=== PATIENT | female | born 1995 | race Caucasian/White ===

== ENCOUNTER 2016-03-06 16:58 | Emergency (ER) | payer OTHER ==
[2016-03-06] MEDS ORDERED: IBUPROFEN 600 MG TAB As Ordered ONE (17:34)
[2016-03-06] MEDS ORDERED: ACETAMINOPHEN 325 MG TAB As Ordered ONE (17:35)
[2016-03-06 17:44] LABS: CONTROL LINE UCG INT CTR LINE PRESENT
[2016-03-06 18:25] LABS: BASO % 0.1 % (0.0-1.0); EOS # 0.1 K/mm3 (0.0-0.50); EOS % 0.9 % (0.0-3.0); LARGE UNSTAINED CELL # 0.1 K/mm3 (0.0-0.4); LARGE UNSTAINED CELL % 0.9 % (0.0-4.0); LYMPH # 0.6 K/mm3 (1.5-6.5); LYMPH % 6.8 % (24.0-44.0); MEAN CORPUSCULAR HEMOGLOBIN 32.7 pg (27.0-33.0); MEAN CORPUSCULAR HGB CONC 35.1 g/dl (32.0-36.5); MEAN CORPUSCULAR VOLUME 93.3 fl (80.0-96.0); MONO # 0.3 K/mm3 (0.0-0.8); MONO % 3.8 % (0.0-5.0); NEUTROPHILS # 7.3 K/mm3 (1.8-7.7); NEUTROPHILS % 87.6 % (36.0-66.0); PLATELET COUNT, AUTOMATED 191 k/mm3 (150-450); RED CELL DISTRIBUTION WIDTH 11.4 % (11.5-14.5); WHITE BLOOD COUNT 8.3 K/mm3 (4.0-10.0)
[2016-03-06 18:40] LABS: ALBUMIN 4.3 GM/DL (3.2-5.2); ALBUMIN/GLOBULIN RATIO 1.34 (1.00-1.93); ALKALINE PHOSPHATASE 71 U/L (45-117); ALT/SGPT 25 U/L (12-78); ANION GAP 9 MEQ/L (8-16); AST/SGOT 16 U/L (15-37); BILIRUBIN,TOTAL 1.9 MG/DL (0.2-1.0); BLOOD UREA NITROGEN 12 MG/DL (7-18); CALCIUM LEVEL 8.5 MG/DL (8.5-10.1); CARBON DIOXIDE LEVEL 25 MEQ/L (21-32); CHLORIDE LEVEL 103 MEQ/L (98-107); CREATININE FOR GFR 0.82 MG/DL (0.55-1.02); GLUCOSE, FASTING 104 MG/DL (70-105); POTASSIUM SERUM 3.4 MEQ/L (3.5-5.1); SODIUM LEVEL 137 MEQ/L (136-145); TOTAL PROTEIN 7.5 GM/DL (6.4-8.2)
[2016-03-06] MEDS ORDERED: PHENAZOPYRIDINE 100 MG TAB As Ordered ONE (18:48)
[2016-03-06] MEDS ORDERED: CIPROFLOXACIN 500 MG TAB As Ordered ONE (18:48)
--- NOTE | 2016-03-06 19:01 | EDDOCDS ---
Physician Documentation [facility] Name: Lesa Orosco Age: 20 yrs Sex: Female : 1995 Arrival Date: 03/06/2016 Time: 16:58 Bed I6 / 28 Private MD: Other - Complete Info On Cds Disposition: 03/06/16 18:52 Discharged to Home/Self Care. Impression: Urinary tract infection, site not specified. - Condition is Stable. - Discharge Instructions: Urinary Tract Infection. - Prescriptions for Cipro 500 mg Oral Tablet - take 1 tablet by ORAL route every 12 hours; 14 tablet. Pyridium 200 mg Oral Tablet - take 1 tablet by ORAL route every 8 hours for 3 days; 9 tablet. - Medication Reconciliation, Local Pharmacy Hours form. - Follow up: JANEEN Fallon; When: 1 - 2 days; Reason: Recheck today's complaints, Continuance of care. Follow up: Emergency Department; When: As needed; Reason: Fever > 102F, Recheck today's complaints, Worsening of conditions, Continuance of care. - Problem is new. - Symptoms have improved. - Notes: USE TYLENOL AND MOTRIN TO TREAT FEVER AND PAIN, USE MEDICATIONS INSTRUTCED, FOLLOW UP WITH YOUR DOCTOR, RETURN TO THE ER IF THE SYMPTOMS WORSEN OR BECOME CONCERNING Historical: - Allergies: no known allergies; - Home Meds: 1. escitalopram oxalate 20 mg oral tab 1 tab once daily (Last dose: 03/05/2016) 2. pantoprazole 40 mg oral TbEC 1 tab once daily (Last dose: 03/05/2016) 3. Linzess 290 mcg oral cap 1 cap once daily (Last dose: 03/05/2016) - PMHx: GERD; Anxiety; Depression; Retinal Detachment - Left; - PSHx: Hernia repair; Tonsillectomy; Adenoidectomy; - Social history: Smoking status: Patient states was never smoker of tobacco. No barriers to communication noted, The patient speaks fluent [place]. - : The pt / caregiver states he / she is not on anticoagulants. Home medication list is obtained from the patient. - Exposure Risk Screening:: None identified. 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 3 in. (160.02 cm) (R); Pain 8/10; 18:50 BP 119 / 57; Pulse 94; Resp 16; Temp 99.4(O); Pulse Ox 97% on R/A; Pain 7/10; sew 17:00 Body Mass Index 18.78 (48.08 kg, 160.02 cm) gr2 MDM: 17:12 UA Ordered. EDMS 17:12 UCG- In Lab Ordered. EDMS 17:12 Urine Culture Ordered. EDMS 17:28 Acetaminophen Tablet 975 mg PO once ordered. ef1 17:28 Ibuprofen 600 mg PO once ordered. ef1 17:30 CBC with Diff Ordered. EDMS 17:30 Complete Comphrensive Metabolic Ordered. EDMS 18:39 UA Reviewed. ck7 18:39 CBC with Diff Reviewed. ck7 18:39 UCG- In Lab Reviewed. ck7 18:43 Ciprofloxacin 500 mg PO once ordered. ck7 18:43 Phenazopyridine 200 mg PO once ordered. ck7 18:43 Recheck Vital Signs, perform reassessment and enter into [employer] ordered. ck7 18:43 Complete Comphrensive Metabolic Reviewed. ck7 18:59 Financial registration complete. zo Administered Medications: 17:37 Drug: Acetaminophen 975 mg [acetaminophen 325 mg tablet (3 tabs)] Route: PO; dls 17:37 Drug: Ibuprofen 600 mg [ibuprofen 600 mg tablet (1 tabs)] Route: PO; dls 18:50 Drug: Ciprofloxacin 500 mg [ciprofloxacin 500 mg tablet (1 tabs)] Route: PO; dls 18:50 Drug: Phenazopyridine 200 mg [phenazopyridine 100 mg tablet (2 tabs)] Route: PO; dls Signatures: Dispatcher [employer] EDMS Vin Luna,RN RN Priya Silverio Erica PAJerichoC PAJerichoC ef1 Jayde Sy, RN RN jc4 Yoav Hernandez RPA-C RPA-Arnold7 Queta Olivier RN dls MTDD
--- NOTE | 2016-03-06 19:01 | EDDOCDS ---
Nurse's Notes [facility] Name: Lesa Orosco Age: 20 yrs Sex: Female : 1995 Arrival Date: 03/06/2016 Time: 16:58 Bed I6 / 28 Private MD: Other - Complete Info On Cds Diagnosis: Urinary tract infection, site not specified Presentation: 03/06 17:05 Presenting complaint: Patient states: "I have a history of kidney infections. I have jc4 pain when urinating, constant pain on the right side, headache, nausea, diarrhea". Symptoms for the past 2 days. Adult Sepsis Screening: The patient does not have new or worsening altered mentation. Patient's respiratory rate is less than 22. Systolic blood pressure is greater than 100. Patient has a qSOFA score of 0- Negative Sepsis Screen. Suicide/Homicide risk assessment- the patient denies having any suicidal and/or homicidal ideations and does not present with any other emotional, behavioral or mental health complaints. Status: The patient is a dependent. Transition of care: patient was not received from another setting of care. 17:05 Acuity: SHE Level 3 jc4 17:05 Method Of Arrival: Walkin/Carried/Asstd jc4 Triage Assessment: 17:09 General: Appears uncomfortable. Pain: Pain currently is 8 out of 10 on a pain scale. Pt jc4 Declines HIV testing. 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 escitalopram oxalate 20 mg oral tab 1 tab once daily (Last dose: 03/05/2016) 2. pantoprazole 40 mg oral TbEC 1 tab once daily (Last dose: 03/05/2016) 3. Linzess 290 mcg oral cap 1 cap once daily (Last dose: 03/05/2016) - PMHx: GERD; Anxiety; Depression; Retinal Detachment - Left; - PSHx: Hernia repair; Tonsillectomy; Adenoidectomy; - Social history: Smoking status: Patient states was never smoker of tobacco. No barriers to communication noted, The patient speaks fluent Nepali. - : The pt / caregiver states he / she is not on anticoagulants. Home medication list is obtained from the patient. - Exposure Risk Screening:: None identified. Screenin:00 Screening information is obtained from the patient. Fall risk: No risks identified. jmk Assistance ADL's: requires no assistance with activities of daily living. Abuse/DV Screen: The patient / caregiver reports he/she is:. Nutritional screening: No deficits noted. Advance Directives: Currently, there is no health care proxy. There is no active DNR order. There is no living will. There is no Power of Rn Er. Advance directive information has not previously been placed in an [facility] medical record. Further advance directive information is declined. home support is adequate. Assessment: 17:22 General: Appears in no apparent distress, sin warm and dry color satisfactory. moist jmk pink oral mucosa.. Vital Signs: 17:00 BP 106 / 59; Pulse 103; Resp 18 S; Temp 101.0(O); Pulse Ox 99% on R/A; Weight 48.08 kg gr2 (R); Height 5 ft. 3 in. (160.02 cm) (R); Pain 8/10; 18:50 BP 119 / 57; Pulse 94; Resp 16; Temp 99.4(O); Pulse Ox 97% on R/A; Pain 7/10; sew 17:00 Body Mass Index 18.78 (48.08 kg, 160.02 cm) gr2 Vitals: 17:00 Log In Time: March 06, 2016 at 17:00. gr2 ED Course: 17:00 Patient visited by Abdelrahman Mcdonald. gr2 17:00 Other - Complete Info On Cds is Private Physician. gr2 17:00 Patient moved to Waiting gr2 17:01 Patient visited by Abdelrahman Mcdonald. gr2 17:01 Patient moved to Pre RCE gr2 17:07 Triage Initiated jc4 17:14 Patient moved to I6 / 28 jc4 17:19 UCG- In Lab Sent. ar3 17:19 Urine Culture Sent. ar3 17:19 UA Sent. ar3 18:25 Patient visited by Queta Olivier RN. dls 18:33 Yoav Hernandez RPA-C is PHCP. ck7 18:33 Haris George MD is Attending Physician. ck7 18:33 Patient visited by Yoav Hernandez RPA-C. ck7 18:52 [facility] [place]erral Physician. ck7 Administered Medications: 17:37 Drug: Acetaminophen 975 mg [acetaminophen 325 mg tablet (3 tabs)] Route: PO; dls 17:37 Drug: Ibuprofen 600 mg [ibuprofen 600 mg tablet (1 tabs)] Route: PO; dls 18:50 Drug: Ciprofloxacin 500 mg [ciprofloxacin 500 mg tablet (1 tabs)] Route: PO; dls 18:50 Drug: Phenazopyridine 200 mg [phenazopyridine 100 mg tablet (2 tabs)] Route: PO; dls Order Results: Lab Order: UA; SPEC'M 03/06/16 17:17 Test: APPEARANCE, URINE; Value: HAZY; Range: CLEAR; Status: F Test: COLOR, URINE; Value: YELLOW; Range: YELLOW; Status: F Test: PH,URINE; Value: 5.0; Range: 5.0-9.0; Units: UNITS; Status: F Test: SPECIFIC GRAVITY URINE AUTO; Value: 1.023; Range: 1.002-1.035; Status: F Test: PROTEIN, URINE AUTO; Value: 1+; Range: NEGATIVE; Abnormal: Above high normal; Units: mg/dL; Status: F Test: GLUCOSE, URINE (UA) AUTO; Value: NEGATIVE; Range: NEGATIVE; Units: mg/dL; Status: F Test: KETONE, URINE AUTO; Value: NEGATIVE; Range: NEGATIVE; Units: mg/dL; Status: F Test: UROBILINOGEN, URINE AUTO; Value: 0.2; Range: 0.0-2.0; Units: mg/dL; Status: F Test: BILIRUBIN, URINE AUTO; Value: NEGATIVE; Range: NEGATIVE; Status: F Test: NITRITE, URINE AUTO; Value: NEGATIVE; Range: NEGATIVE; Status: F Test: LEUKOCYTE ESTERASE, URINE AUTO; Value: 1+; Range: NEGATIVE; Abnormal: Above high normal; Status: F Test: BLOOD, URINE BLOOD; Value: 2+; Range: NEGATIVE; Abnormal: Above high normal; Status: F Test: SPERM, URINE AUTO; Range: NONE; Status: I Test: WBC, URINE AUTO; Value: 16; Range: 0-3; Abnormal: Above high normal; Units: /HPF; Status: F Test: RBC, URINE AUTO; Value: 22; Range: 0-3; Abnormal: Above high normal; Units: /HPF; Status: F Test: BACTERIA, URINE AUTO; Value: 1+; Range: NEGATIVE; Abnormal: Above high normal; Status: F Test: SQUAMOUS EPITHELIAL CELL UR AU; Value: 4; Range: 0-6; Units: /HPF; Status: F Test: MUCUS, URINE; Value: SMALL; Range: NEGATIVE; Status: F Test: HYALINE CAST, URINE AUTO; Value: 0; Range: 0-1; Units: /LPF; Status: F Lab Order: UCG- In Lab; SPEC'M 03/06/16 17:17 Test: URINE PREG TEST; Value: NEGATIVE; Range: NEGATIVE; Status: F Lab Order: CBC with Diff; SPEC'M 03/06/16 18:04 Test: WHITE BLOOD COUNT; Value: 8.3; Range: 4.0-10.0; Units: K/mm3; Status: F Test: RED BLOOD COUNT; Value: 4.43; Range: 4.00-5.40; Units: M/mm3; Status: F Test: HEMOGLOBIN; Value: 14.5; Range: 12.0-16.0; Units: g/dl; Status: F Test: HEMATOCRIT; Value: 41.3; Range: 36.0-47.0; Units: %; Status: F Test: MEAN CORPUSCULAR VOLUME; Value: 93.3; Range: 80.0-96.0; Units: fl; Status: F Test: MEAN CORPUSCULAR HEMOGLOBIN; Value: 32.7; Range: 27.0-33.0; Units: pg; Status: F Test: MEAN CORPUSCULAR HGB CONC; Value: 35.1; Range: 32.0-36.5; Units: g/dl; Status: F Test: RED CELL DISTRIBUTION WIDTH; Value: 11.4; Range: 11.5-14.5; Abnormal: Below low normal; Units: %; Status: F Test: PLATELET COUNT, AUTOMATED; Value: 191; Range: 150-450; Units: k/mm3; Status: F Test: NEUTROPHILS %; Value: 87.6; Range: 36.0-66.0; Abnormal: Above high normal; Units: %; Status: F Test: LYMPH %; Value: 6.8; Range: 24.0-44.0; Abnormal: Below low normal; Units: %; Status: F Test: MONO %; Value: 3.8; Range: 0.0-5.0; Units: %; Status: F Test: EOS %; Value: 0.9; Range: 0.0-3.0; Units: %; Status: F Test: BASO %; Value: 0.1; Range: 0.0-1.0; Units: %; Status: F Test: LARGE UNSTAINED CELL %; Value: 0.9; Range: 0.0-4.0; Units: %; Status: F Test: NEUTROPHILS #; Value: 7.3; Range: 1.8-7.7; Units: K/mm3; Status: F Test: LYMPH #; Value: 0.6; Range: 1.5-6.5; Abnormal: Below low normal; Units: K/mm3; Status: F Test: MONO #; Value: 0.3; Range: 0.0-0.8; Units: K/mm3; Status: F Test: EOS #; Value: 0.1; Range: 0.0-0.50; Units: K/mm3; Status: F Test: BASO #; Value: 0.0; Range: 0.0-0.2; Units: K/mm3; Status: F Test: LARGE UNSTAINED CELL #; Value: 0.1; Range: 0.0-0.4; Units: K/mm3; Status: F Lab Order: Complete Comphrensive Metabolic; SPEC'M 03/06/16 18:04 Test: GLUCOSE, FASTING; Value: 104; Range: 70-105; Units: MG/DL; Status: F Test: BLOOD UREA NITROGEN; Value: 12; Range: 7-18; Units: MG/DL; Status: F Test: CREATININE FOR GFR; Value: 0.82; Range: 0.55-1.02; Units: MG/DL; Status: F Test: SODIUM LEVEL; Value: 137; Range: 136-145; Units: MEQ/L; Status: F Test: POTASSIUM SERUM; Value: 3.4; Range: 3.5-5.1; Abnormal: Below low normal; Units: MEQ/L; Status: F Test: CHLORIDE LEVEL; Value: 103; Range: 98-107; Units: MEQ/L; Status: F Test: CARBON DIOXIDE LEVEL; Value: 25; Range: 21-32; Units: MEQ/L; Status: F Test: ANION GAP; Value: 9; Range: 8-16; Units: MEQ/L; Status: F Test: CALCIUM LEVEL; Value: 8.5; Range: 8.5-10.1; Units: MG/DL; Status: F Test: AST/SGOT; Value: 16; Range: 15-37; Units: U/L; Status: F Test: ALT/SGPT; Value: 25; Range: 12-78; Units: U/L; Status: F Test: ALKALINE PHOSPHATASE; Value: 71; Range: 45-117; Units: U/L; Status: F Test: BILIRUBIN,TOTAL; Value: 1.9; Range: 0.2-1.0; Abnormal: Above high normal; Units: MG/DL; Status: F Test: TOTAL PROTEIN; Value: 7.5; Range: 6.4-8.2; Units: GM/DL; Status: F Test: ALBUMIN; Value: 4.3; Range: 3.2-5.2; Units: GM/DL; Status: F Test: ALBUMIN/GLOBULIN RATIO; Value: 1.34; Range: 1.00-1.93; Status: F Outcome: 18:52 Discharge ordered by Provider. ck7 18:59 Discharge Assessment: Patient awake, alert and oriented x 3. No cognitive and/or k functional deficits noted. Patient verbalized understanding of disposition instructions. patient administered narcotics - no. The following High Risk Discharge criteria are identified: None. Discharged to home ambulatory. Condition: good. Discharge instructions given to patient, Instructed on discharge instructions, follow up and referral plans. medication usage, Demonstrated understanding of instructions, medications, Pt was receptive of discharge instructions/ teaching. Prescriptions given X 2. No special radiology studies were completed. Property :Personal belongings accompany Pt. 19:00 Patient left the ED. [facility] Signatures: Vin Luna,RN Queta Ventura RN Ivy Espinal, MARGARET METAL REED TUNER ar3 Jayde Sy RN RN jc4 Yoav Hernandez, RPA-C RPA-Cck7 Esther Samayoa Gainslee gr2 MTDD
--- NOTE | 2016-03-08 20:01 | EDDOCDS ---
Physician Documentation [facility] Name: Lesa Orosco Age: 20 yrs Sex: Female : 1995 Arrival Date: 03/06/2016 Time: 16:58 Bed I6 / 28 Private MD: Other - Complete Info On Cds Disposition: 03/06/16 18:52 Discharged to Home/Self Care. Impression: Urinary tract infection, site not specified. - Condition is Stable. - Discharge Instructions: Urinary Tract Infection. - Prescriptions for Cipro 500 mg Oral Tablet - take 1 tablet by ORAL route every 12 hours; 14 tablet. Pyridium 200 mg Oral Tablet - take 1 tablet by ORAL route every 8 hours for 3 days; 9 tablet. - Medication Reconciliation, Local Pharmacy Hours form. - Follow up: JANEEN Fallon; When: 1 - 2 days; Reason: Recheck today's complaints, Continuance of care. Follow up: Emergency Department; When: As needed; Reason: Fever > 102F, Recheck today's complaints, Worsening of conditions, Continuance of care. - Problem is new. - Symptoms have improved. - Notes: USE TYLENOL AND MOTRIN TO TREAT FEVER AND PAIN, USE MEDICATIONS INSTRUTCED, FOLLOW UP WITH YOUR DOCTOR, RETURN TO THE ER IF THE SYMPTOMS WORSEN OR BECOME CONCERNING Historical: - Allergies: no known allergies; - Home Meds: 1. escitalopram oxalate 20 mg oral tab 1 tab once daily (Last dose: 03/05/2016) 2. pantoprazole 40 mg oral TbEC 1 tab once daily (Last dose: 03/05/2016) 3. Linzess 290 mcg oral cap 1 cap once daily (Last dose: 03/05/2016) - PMHx: GERD; Anxiety; Depression; Retinal Detachment - Left; - PSHx: Hernia repair; Tonsillectomy; Adenoidectomy; - Social history: Smoking status: Patient states was never smoker of tobacco. No barriers to communication noted, The patient speaks fluent Turkmen. - : The pt / caregiver states he / she is not on anticoagulants. Home medication list is obtained from the patient. - Exposure Risk Screening:: None identified. 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 3 in. (160.02 cm) (R); Pain 8/10; 18:50 BP 119 / 57; Pulse 94; Resp 16; Temp 99.4(O); Pulse Ox 97% on R/A; Pain 7/10; sew 17:00 Body Mass Index 18.78 (48.08 kg, 160.02 cm) gr2 MDM: 17:12 UA Ordered. EDMS 17:12 UCG- In Lab Ordered. EDMS 17:12 Urine Culture Ordered. EDMS 17:28 Acetaminophen Tablet 975 mg PO once ordered. ef1 17:28 Ibuprofen 600 mg PO once ordered. ef1 17:30 CBC with Diff Ordered. EDMS 17:30 Complete Comphrensive Metabolic Ordered. EDMS 18:39 UA Reviewed. ck7 18:39 CBC with Diff Reviewed. ck7 18:39 UCG- In Lab Reviewed. ck7 18:43 Ciprofloxacin 500 mg PO once ordered. ck7 18:43 Phenazopyridine 200 mg PO once ordered. ck7 18:43 Recheck Vital Signs, perform reassessment and enter into [employer] ordered. ck7 18:43 Complete Comphrensive Metabolic Reviewed. ck7 18:59 Financial registration complete. zo 19:14 [facility] Payment Agreement was scanned into [employer] and attached to record. zo 03/07 10:30 T-Sheet-- Draft Copy was scanned into [employer] and attached to record. gb Administered Medications: 03/06 17:37 Drug: Acetaminophen 975 mg [acetaminophen 325 mg tablet (3 tabs)] Route: PO; dls 17:37 Drug: Ibuprofen 600 mg [ibuprofen 600 mg tablet (1 tabs)] Route: PO; dls 18:50 Drug: Ciprofloxacin 500 mg [ciprofloxacin 500 mg tablet (1 tabs)] Route: PO; dls 18:50 Drug: Phenazopyridine 200 mg [phenazopyridine 100 mg tablet (2 tabs)] Route: PO; dls Signatures: Dispatcher [employer] EDMS Vin Luna,RN RN Mariola Billings, Abe Reg Priya Hinds Erica PA-C PAJerichoC ef1 Jayde Sy, RN RN jc4 Yoav Hernandez, RPA-C RPA-Cck7 Queta Olivier RN dls The chart was reviewed and I authenticate all verbal orders and agree with the evaluation and treatment provided.Attachments: 19:14 [facility] Payment Agreement zo 03/07 10:30 T-Sheet-- Draft Copy gb Chart Complete MTDD
--- NOTE | 2016-03-08 20:01 | EDDOCDS ---
Nurse's Notes [facility] Name: Lesa Orosco Age: 20 yrs Sex: Female : 1995 Arrival Date: 03/06/2016 Time: 16:58 Bed I6 / 28 Private MD: Other - Complete Info On Cds Diagnosis: Urinary tract infection, site not specified Presentation: 03/06 17:05 Presenting complaint: Patient states: "I have a history of kidney infections. I have jc4 pain when urinating, constant pain on the right side, headache, nausea, diarrhea". Symptoms for the past 2 days. Adult Sepsis Screening: The patient does not have new or worsening altered mentation. Patient's respiratory rate is less than 22. Systolic blood pressure is greater than 100. Patient has a qSOFA score of 0- Negative Sepsis Screen. Suicide/Homicide risk assessment- the patient denies having any suicidal and/or homicidal ideations and does not present with any other emotional, behavioral or mental health complaints. Status: The patient is a dependent. Transition of care: patient was not received from another setting of care. 17:05 Acuity: SHE Level 3 jc4 17:05 Method Of Arrival: Walkin/Carried/Asstd jc4 Triage Assessment: 17:09 General: Appears uncomfortable. Pain: Pain currently is 8 out of 10 on a pain scale. Pt jc4 Declines HIV testing. 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 escitalopram oxalate 20 mg oral tab 1 tab once daily (Last dose: 03/05/2016) 2. pantoprazole 40 mg oral TbEC 1 tab once daily (Last dose: 03/05/2016) 3. Linzess 290 mcg oral cap 1 cap once daily (Last dose: 03/05/2016) - PMHx: GERD; Anxiety; Depression; Retinal Detachment - Left; - PSHx: Hernia repair; Tonsillectomy; Adenoidectomy; - Social history: Smoking status: Patient states was never smoker of tobacco. No barriers to communication noted, The patient speaks fluent Tajik. - : The pt / caregiver states he / she is not on anticoagulants. Home medication list is obtained from the patient. - Exposure Risk Screening:: None identified. Screenin:00 Screening information is obtained from the patient. Fall risk: No risks identified. jmk Assistance ADL's: requires no assistance with activities of daily living. Abuse/DV Screen: The patient / caregiver reports he/she is:. Nutritional screening: No deficits noted. Advance Directives: Currently, there is no health care proxy. There is no active DNR order. There is no living will. There is no Power of Catalogue Librarian. Advance directive information has not previously been placed in an [facility] medical record. Further advance directive information is declined. home support is adequate. Assessment: 17:22 General: Appears in no apparent distress, sin warm and dry color satisfactory. moist jmk pink oral mucosa.. Vital Signs: 17:00 BP 106 / 59; Pulse 103; Resp 18 S; Temp 101.0(O); Pulse Ox 99% on R/A; Weight 48.08 kg gr2 (R); Height 5 ft. 3 in. (160.02 cm) (R); Pain 8/10; 18:50 BP 119 / 57; Pulse 94; Resp 16; Temp 99.4(O); Pulse Ox 97% on R/A; Pain 7/10; sew 17:00 Body Mass Index 18.78 (48.08 kg, 160.02 cm) gr2 Vitals: 17:00 Log In Time: March 06, 2016 at 17:00. gr2 ED Course: 17:00 Patient visited by Abdelrahman Mcdonald. gr2 17:00 Other - Complete Info On Cds is Private Physician. gr2 17:00 Patient moved to Waiting gr2 17:01 Patient visited by Abdelrahman Mcdonald. gr2 17:01 Patient moved to Pre RCE gr2 17:07 Triage Initiated jc4 17:14 Patient moved to I6 jc4 17:19 UCG- In Lab Sent. ar3 17:19 Urine Culture Sent. ar3 17:19 UA Sent. ar3 18:25 Patient visited by Queta Olivier RN. dls 18:33 Yoav Hernandez RPA-C is PHCP. ck7 18:33 Haris George MD is Attending Physician. ck7 18:33 Patient visited by Yoav Hernandez RPA-C. ck7 18:52 Vasyl [facility] is Referral Physician. ck7 19:14 [facility] Payment Agreement was scanned into [employer] and attached to record. zo 03/07 10:30 T-Sheet-- Draft Copy was scanned into [employer] and attached to record. gb Administered Medications: 03/06 17:37 Drug: Acetaminophen 975 mg [acetaminophen 325 mg tablet (3 tabs)] Route: PO; dls 17:37 Drug: Ibuprofen 600 mg [ibuprofen 600 mg tablet (1 tabs)] Route: PO; dls 18:50 Drug: Ciprofloxacin 500 mg [ciprofloxacin 500 mg tablet (1 tabs)] Route: PO; dls 18:50 Drug: Phenazopyridine 200 mg [phenazopyridine 100 mg tablet (2 tabs)] Route: PO; dls Order Results: Lab Order: UA; SPEC'M 03/06/16 17:17 Test: APPEARANCE, URINE; Value: HAZY; Range: CLEAR; Status: F Test: COLOR, URINE; Value: YELLOW; Range: YELLOW; Status: F Test: PH,URINE; Value: 5.0; Range: 5.0-9.0; Units: UNITS; Status: F Test: SPECIFIC GRAVITY URINE AUTO; Value: 1.023; Range: 1.002-1.035; Status: F Test: PROTEIN, URINE AUTO; Value: 1+; Range: NEGATIVE; Abnormal: Above high normal; Units: mg/dL; Status: F Test: GLUCOSE, URINE (UA) AUTO; Value: NEGATIVE; Range: NEGATIVE; Units: mg/dL; Status: F Test: KETONE, URINE AUTO; Value: NEGATIVE; Range: NEGATIVE; Units: mg/dL; Status: F Test: UROBILINOGEN, URINE AUTO; Value: 0.2; Range: 0.0-2.0; Units: mg/dL; Status: F Test: BILIRUBIN, URINE AUTO; Value: NEGATIVE; Range: NEGATIVE; Status: F Test: NITRITE, URINE AUTO; Value: NEGATIVE; Range: NEGATIVE; Status: F Test: LEUKOCYTE ESTERASE, URINE AUTO; Value: 1+; Range: NEGATIVE; Abnormal: Above high normal; Status: F Test: BLOOD, URINE BLOOD; Value: 2+; Range: NEGATIVE; Abnormal: Above high normal; Status: F Test: SPERM, URINE AUTO; Range: NONE; Status: I Test: WBC, URINE AUTO; Value: 16; Range: 0-3; Abnormal: Above high normal; Units: /HPF; Status: F Test: RBC, URINE AUTO; Value: 22; Range: 0-3; Abnormal: Above high normal; Units: /HPF; Status: F Test: BACTERIA, URINE AUTO; Value: 1+; Range: NEGATIVE; Abnormal: Above high normal; Status: F Test: SQUAMOUS EPITHELIAL CELL UR AU; Value: 4; Range: 0-6; Units: /HPF; Status: F Test: MUCUS, URINE; Value: SMALL; Range: NEGATIVE; Status: F Test: HYALINE CAST, URINE AUTO; Value: 0; Range: 0-1; Units: /LPF; Status: F Lab Order: Urine Culture; SPEC'M 03/06/16 17:17 Test: URINE CULTURE; Value: URINE CULTURE RESULT; Status: F Test: URINE CULTURE; Value: NO GROWTH CLINICAL SIGNIFICANCE 2 OR MORE ORGANISMS; Status: F Lab Order: UCG- In Lab; SPEC' 03/06/16 17:17 Test: URINE PREG TEST; Value: NEGATIVE; Range: NEGATIVE; Status: F Lab Order: CBC with Diff; [facility]' 03/06/16 18:04 Test: WHITE BLOOD COUNT; Value: 8.3; Range: 4.0-10.0; Units: K/mm3; Status: F Test: RED BLOOD COUNT; Value: 4.43; Range: 4.00-5.40; Units: M/mm3; Status: F Test: HEMOGLOBIN; Value: 14.5; Range: 12.0-16.0; Units: g/dl; Status: F Test: HEMATOCRIT; Value: 41.3; Range: 36.0-47.0; Units: %; Status: F Test: MEAN CORPUSCULAR VOLUME; Value: 93.3; Range: 80.0-96.0; Units: fl; Status: F Test: MEAN CORPUSCULAR HEMOGLOBIN; Value: 32.7; Range: 27.0-33.0; Units: pg; Status: F Test: MEAN CORPUSCULAR HGB CONC; Value: 35.1; Range: 32.0-36.5; Units: g/dl; Status: F Test: RED CELL DISTRIBUTION WIDTH; Value: 11.4; Range: 11.5-14.5; Abnormal: Below low normal; Units: %; Status: F Test: PLATELET COUNT, AUTOMATED; Value: 191; Range: 150-450; Units: k/mm3; Status: F Test: NEUTROPHILS %; Value: 87.6; Range: 36.0-66.0; Abnormal: Above high normal; Units: %; Status: F Test: LYMPH %; Value: 6.8; Range: 24.0-44.0; Abnormal: Below low normal; Units: %; Status: F Test: MONO %; Value: 3.8; Range: 0.0-5.0; Units: %; Status: F Test: EOS %; Value: 0.9; Range: 0.0-3.0; Units: %; Status: F Test: BASO %; Value: 0.1; Range: 0.0-1.0; Units: %; Status: F Test: LARGE UNSTAINED CELL %; Value: 0.9; Range: 0.0-4.0; Units: %; Status: F Test: NEUTROPHILS #; Value: 7.3; Range: 1.8-7.7; Units: K/mm3; Status: F Test: LYMPH #; Value: 0.6; Range: 1.5-6.5; Abnormal: Below low normal; Units: K/mm3; Status: F Test: MONO #; Value: 0.3; Range: 0.0-0.8; Units: K/mm3; Status: F Test: EOS #; Value: 0.1; Range: 0.0-0.50; Units: K/mm3; Status: F Test: BASO #; Value: 0.0; Range: 0.0-0.2; Units: K/mm3; Status: F Test: LARGE UNSTAINED CELL #; Value: 0.1; Range: 0.0-0.4; Units: K/mm3; Status: F Lab Order: Complete Comphrensive Metabolic; SPEC'M 03/06/16 18:04 Test: GLUCOSE, FASTING; Value: 104; Range: 70-105; Units: MG/DL; Status: F Test: BLOOD UREA NITROGEN; Value: 12; Range: 7-18; Units: MG/DL; Status: F Test: CREATININE FOR GFR; Value: 0.82; Range: 0.55-1.02; Units: MG/DL; Status: F Test: SODIUM LEVEL; Value: 137; Range: 136-145; Units: MEQ/L; Status: F Test: POTASSIUM SERUM; Value: 3.4; Range: 3.5-5.1; Abnormal: Below low normal; Units: MEQ/L; Status: F Test: CHLORIDE LEVEL; Value: 103; Range: 98-107; Units: MEQ/L; Status: F Test: CARBON DIOXIDE LEVEL; Value: 25; Range: 21-32; Units: MEQ/L; Status: F Test: ANION GAP; Value: 9; Range: 8-16; Units: MEQ/L; Status: F Test: CALCIUM LEVEL; Value: 8.5; Range: 8.5-10.1; Units: MG/DL; Status: F Test: AST/SGOT; Value: 16; Range: 15-37; Units: U/L; Status: F Test: ALT/SGPT; Value: 25; Range: 12-78; Units: U/L; Status: F Test: ALKALINE PHOSPHATASE; Value: 71; Range: 45-117; Units: U/L; Status: F Test: BILIRUBIN,TOTAL; Value: 1.9; Range: 0.2-1.0; Abnormal: Above high normal; Units: MG/DL; Status: F Test: TOTAL PROTEIN; Value: 7.5; Range: 6.4-8.2; Units: GM/DL; Status: F Test: ALBUMIN; Value: 4.3; Range: 3.2-5.2; Units: GM/DL; Status: F Test: ALBUMIN/GLOBULIN RATIO; Value: 1.34; Range: 1.00-1.93; Status: F Outcome: 18:52 Discharge ordered by Provider. ck7 18:59 Discharge Assessment: Patient awake, alert and oriented x 3. No cognitive and/or k functional deficits noted. Patient verbalized understanding of disposition instructions. patient administered narcotics - no. The following High Risk Discharge criteria are identified: None. Discharged to home ambulatory. Condition: good. Discharge instructions given to patient, Instructed on discharge instructions, follow up and referral plans. medication usage, Demonstrated understanding of instructions, medications, Pt was receptive of discharge instructions/ teaching. Prescriptions given X 2. No special radiology studies were completed. Property :Personal belongings accompany Pt. 19:00 Patient left the ED. curt Signatures: Vin Luna,RN RN Queta Jorgensen, RN RN dls Leila, Mariola, Reg Reg gb Devendra, Ivy Duvall, DNA ANALYST DNA ANALYST ar3 Jayde Sy, LEATHA RN jc4 Yoav Hernandez, RPA-C RPA-Cck7 Esther Samayoa Gainslee gr2 Chart Complete MTDD
--- NOTE | 2016-03-08 20:01 | EDDOCDS ---
Physician Documentation [facility] Name: Lesa Orosco Age: 20 yrs Sex: Female : 1995 Arrival Date: 03/06/2016 Time: 16:58 Bed I6 / 28 Private MD: Other - Complete Info On Cds Disposition: 03/06/16 18:52 Discharged to Home/Self Care. Impression: Urinary tract infection, site not specified. - Condition is Stable. - Discharge Instructions: Urinary Tract Infection. - Prescriptions for Cipro 500 mg Oral Tablet - take 1 tablet by ORAL route every 12 hours; 14 tablet. Pyridium 200 mg Oral Tablet - take 1 tablet by ORAL route every 8 hours for 3 days; 9 tablet. - Medication Reconciliation, Local Pharmacy Hours form. - Follow up: [facility]ANE[facility] Fallon; When: 1 - 2 days; Reason: Recheck today's complaints, Continuance of care. Follow up: Emergency Department; When: As needed; Reason: Fever > 102F, Recheck today's complaints, Worsening of conditions, Continuance of care. - Problem is new. - Symptoms have improved. - Notes: USE TYLENOL AND MOTRIN TO TREAT FEVER AND PAIN, USE MEDICATIONS INSTRUTCED, FOLLOW UP WITH YOUR DOCTOR, RETURN TO THE ER IF THE SYMPTOMS WORSEN OR BECOME CONCERNING Historical: - Allergies: no known allergies; - Home Meds: 1. escitalopram oxalate 20 mg oral tab 1 tab once daily (Last dose: 03/05/2016) 2. pantoprazole 40 mg oral TbEC 1 tab once daily (Last dose: 03/05/2016) 3. Linzess 290 mcg oral cap 1 cap once daily (Last dose: 03/05/2016) - PMHx: GERD; Anxiety; Depression; Retinal Detachment - Left; - PSHx: Hernia repair; Tonsillectomy; Adenoidectomy; - Social history: Smoking status: Patient states was never smoker of tobacco. No barriers to communication noted, The patient speaks fluent Occitan. - : The pt / caregiver states he / she is not on anticoagulants. Home medication list is obtained from the patient. - Exposure Risk Screening:: None identified. 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 3 in. (160.02 cm) (R); Pain 8/10; 18:50 BP 119 / 57; Pulse 94; Resp 16; Temp 99.4(O); Pulse Ox 97% on R/A; Pain 7/10; sew 17:00 Body Mass Index 18.78 (48.08 kg, 160.02 cm) gr2 MDM: 17:12 UA Ordered. EDMS 17:12 UCG- In Lab Ordered. EDMS 17:12 Urine Culture Ordered. EDMS 17:28 Acetaminophen Tablet 975 mg PO once ordered. ef1 17:28 Ibuprofen 600 mg PO once ordered. ef1 17:30 CBC with Diff Ordered. EDMS 17:30 Complete Comphrensive Metabolic Ordered. EDMS 18:39 UA Reviewed. ck7 18:39 CBC with Diff Reviewed. ck7 18:39 UCG- In Lab Reviewed. ck7 18:43 Ciprofloxacin 500 mg PO once ordered. ck7 18:43 Phenazopyridine 200 mg PO once ordered. ck7 18:43 Recheck Vital Signs, perform reassessment and enter into [employer] ordered. ck7 18:43 Complete Comphrensive Metabolic Reviewed. ck7 18:59 Financial registration complete. zo 19:14 [facility] Payment Agreement was scanned into [employer] and attached to record. zo 03/07 10:30 T-Sheet-- Draft Copy was scanned into [employer] and attached to record. gb Administered Medications: 03/06 17:37 Drug: Acetaminophen 975 mg [acetaminophen 325 mg tablet (3 tabs)] Route: PO; dls 17:37 Drug: Ibuprofen 600 mg [ibuprofen 600 mg tablet (1 tabs)] Route: PO; dls 18:50 Drug: Ciprofloxacin 500 mg [ciprofloxacin 500 mg tablet (1 tabs)] Route: PO; dls 18:50 Drug: Phenazopyridine 200 mg [phenazopyridine 100 mg tablet (2 tabs)] Route: PO; dls Signatures: Dispatcher [employer] EDMS Vin Luna,RN RN Mariola Billings, Abe Reg Priya Hinds Erica PA-C PAJerichoC ef1 Jayde Sy, RN RN jc4 Yoav Hernandez, RPA-C RPA-Cck7 Queta Olivier RN dls The chart was reviewed and I authenticate all verbal orders and agree with the evaluation and treatment provided.Attachments: 19:14 [facility] Payment Agreement zo 03/07 10:30 T-Sheet-- Draft Copy gb Chart Complete MTDD
== END 2016-03-06 19:00 | disposition home or self-care (01) ==
LOC: M ED 16:58
DX: N39.0 Urinary tract infection, site not specified (principal); K21.9 Gastro-esophageal reflux disease without esophagitis; F41.9 Anxiety disorder, unspecified; F32.9 Major depressive disorder, single episode, unspecified; Z90.89 Acquired absence of other organs; Z79.899 Other long term (current) drug therapy

== ENCOUNTER 2016-04-30 10:22 | Emergency (ER) | payer OTHER ==
[~2016-04-30] VITALS: Ht 160 cm; Wt 48.1 kg
[2016-04-30] MEDS ORDERED: LEXA1TAB2 PO (10:58)
[2016-04-30] MEDS ORDERED: IBUP600T26 PO (10:58)
[2016-04-30] MEDS ORDERED: PANT40TA2 PO (10:58)
[2016-04-30] MEDS ORDERED: CIPROFLOXACIN 500 MG TAB PO ONE (11:30)
[2016-04-30] MEDS ORDERED: CIPR500T89 PO (11:35)
[2016-04-30 11:39] LABS: BASO % 0.3 % (0.0-1.0); EOS # 0.1 K/mm3 (0.0-0.50); EOS % 0.9 % (0.0-3.0); LARGE UNSTAINED CELL # 0.1 K/mm3 (0.0-0.4); LARGE UNSTAINED CELL % 1.1 % (0.0-4.0); LYMPH # 0.7 K/mm3 (1.5-6.5); LYMPH % 7.7 % (24.0-44.0); MEAN CORPUSCULAR HEMOGLOBIN 33.2 pg (27.0-33.0); MEAN CORPUSCULAR HGB CONC 35.6 g/dl (32.0-36.5); MEAN CORPUSCULAR VOLUME 93.3 fl (80.0-96.0); MONO # 0.5 K/mm3 (0.0-0.8); MONO % 6.2 % (0.0-5.0); NEUTROPHILS # 7.1 K/mm3 (1.8-7.7); NEUTROPHILS % 83.8 % (36.0-66.0); PLATELET COUNT, AUTOMATED 186 k/mm3 (150-450); RED CELL DISTRIBUTION WIDTH 11.6 % (11.5-14.5); WHITE BLOOD COUNT 8.4 K/mm3 (4.0-10.0)
[2016-04-30 11:43] LABS: RENAL EPITHELIAL CELLS 1 /HPF
[2016-04-30 11:52] VITALS: BP 108/58
[2016-04-30 12:04] LABS: ALBUMIN/GLOBULIN RATIO 1.21 (1.00-1.93); ALKALINE PHOSPHATASE 78 U/L (45-117); ALT/SGPT 26 U/L (12-78); ANION GAP 10 MEQ/L (8-16); AST/SGOT 20 U/L (15-37); BILIRUBIN,TOTAL 1.1 MG/DL (0.2-1.0); BLOOD UREA NITROGEN 13 MG/DL (7-18); CALCIUM LEVEL 8.4 MG/DL (8.5-10.1); CARBON DIOXIDE LEVEL 28 MEQ/L (21-32); CHLORIDE LEVEL 103 MEQ/L (98-107); CREATININE FOR GFR 0.72 MG/DL (0.55-1.02); GLUCOSE, FASTING 95 MG/DL (70-105); POTASSIUM SERUM 3.7 MEQ/L (3.5-5.1); SODIUM LEVEL 141 MEQ/L (136-145); TOTAL PROTEIN 7.3 GM/DL (6.4-8.2)
== END 2016-04-30 11:56 | disposition home or self-care (01) ==
LOC: M ED 11:27
DX: N30.00 Acute cystitis without hematuria (principal); Z88.2 Allergy status to sulfonamides; Z79.899 Other long term (current) drug therapy

== ENCOUNTER → 2016-05-30 | Outpatient (CLI) | payer OTHER ==
[~2016-05-30] MED LIST: CIPR500T89 PO; IBUP600T26 PO; ISOVUE-300 61% 50ML VIAL (Q9967) As Ordered ONE; ISOVUE-370 76% 100ML VIAL (Q9967) As Ordered ONE; LEXA1TAB2 PO; PANT40TA2 PO
--- NOTE | 2016-05-30 16:17 | REP ---
Hysterosalpingography: History: Primary infertility. Procedure: Endometrial cannula was passed by the referring controlled atmospheric furnace brazer. Fluoroscopic spot films were obtained during contrast injection. 39 seconds of fluoroscopy time was utilized. Five fluoroscopic spot radiographs are obtained. Findings: There is normal symmetric filling of the isthmic and ampullary segments of the fallopian tubes with bilateral peritoneal spillage documented indicating patency. Endometrial cavity is unremarkable. Impression: Normal hysterosalpingogram. Bilateral tubal patency documented. Signed by Hernan Barboza MD 05/30/2016 04:20 P
== END ==
LOC: M RADPRO 11:11
PROVIDERS: ATTEND Obstetrics & Gynecology
DX: N97.9 Female infertility, unspecified (principal); Z88.2 Allergy status to sulfonamides
CPT/HCPCS: 58340; 74740; Q9967

== ENCOUNTER 2016-06-22 15:28 | Emergency (ER) | payer OTHER ==
[~2016-06-22] VITALS: Ht 160 cm; Wt 48.1 kg
[~2016-06-22 15:28] MED LIST changes: -ISOVUE-300 61% 50ML VIAL (Q9967) As Ordered ONE; -ISOVUE-370 76% 100ML VIAL (Q9967) As Ordered ONE
[2016-06-22] MEDS ORDERED: CLOM50TA2 PO (15:37)
[2016-06-22] MEDS ORDERED: MACR100C3 PO (15:37)
[2016-06-22] MEDS ORDERED: KETOROLAC 30 MG/ML VIAL (J1885) IV ONE (16:00)
[2016-06-22] MEDS ORDERED: NS 1,000 ML IV ONE (16:00)
[2016-06-22] MEDS ORDERED: ONDANSETRON 4MG/2ML VIAL (J2405) IV ONE (16:00)
[2016-06-22 16:56] LABS: BASO # 0.1 K/mm3 (0.0-0.2); BASO % 0.7 % (0.0-1.0); EOS # 0.1 K/mm3 (0.0-0.50); EOS % 1.4 % (0.0-3.0); LARGE UNSTAINED CELL # 0.2 K/mm3 (0.0-0.4); LARGE UNSTAINED CELL % 1.9 % (0.0-4.0); LYMPH # 2.5 K/mm3 (1.5-6.5); LYMPH % 25.8 % (24.0-44.0); MEAN CORPUSCULAR HEMOGLOBIN 31.5 pg (27.0-33.0); MEAN CORPUSCULAR HGB CONC 33.6 g/dl (32.0-36.5); MEAN CORPUSCULAR VOLUME 93.7 fl (80.0-96.0); MONO # 0.4 K/mm3 (0.0-0.8); MONO % 4.3 % (0.0-5.0); NEUTROPHILS # 5.8 K/mm3 (1.8-7.7); NEUTROPHILS % 65.9 % (36.0-66.0); PLATELET COUNT, AUTOMATED 213 k/mm3 (150-450); WHITE BLOOD COUNT 8.8 K/mm3 (4.0-10.0)
[2016-06-22 17:18] LABS: ALBUMIN 4.1 GM/DL (3.2-5.2); ALBUMIN/GLOBULIN RATIO 1.17 (1.00-1.93); ALKALINE PHOSPHATASE 61 U/L (45-117); ALT/SGPT 24 U/L (12-78); ANION GAP 8 MEQ/L (8-16); AST/SGOT 18 U/L (15-37); BILIRUBIN,DIRECT 0.2 MG/DL (0.0-0.2); BILIRUBIN,TOTAL 0.9 MG/DL (0.2-1.0); BLOOD UREA NITROGEN 15 MG/DL (7-18); CALCIUM LEVEL 8.5 MG/DL (8.5-10.1); CARBON DIOXIDE LEVEL 28 MEQ/L (21-32); CHLORIDE LEVEL 107 MEQ/L (98-107); CREATININE FOR GFR 0.79 MG/DL (0.55-1.02); GLUCOSE, FASTING 77 MG/DL (70-105); POTASSIUM SERUM 3.4 MEQ/L (3.5-5.1); SODIUM LEVEL 143 MEQ/L (136-145); TOTAL PROTEIN 7.6 GM/DL (6.4-8.2)
[2016-06-22] MEDS ORDERED: ULTR50TA PO (18:03)
[2016-06-22 18:05] VITALS: BP 114/68
--- NOTE | 2016-06-23 06:11 | REP ---
PELVIC AND ENDOVAGINAL PROBE ULTRASOUND: 06/22/2016. Clinical history. Right sided pelvic pain. There are no prior studies. Transabdominal images with the bladder minimally filled measuring 6.3 x 1.5 x 1.8 cm noted. Uterus anteverted. It measures 7.5 x 3 x 4.2 cm. There is a central endometrial echogenic stripe better seen on the EV probe and measuring 9.8 mm. No fluid in the endometrial cavity or endocervical canal. No uterine mass or contour abnormality. There is no fluid in the cervix. Right ovary is enlarged 6.3 x 3 x 5.2 cm. There is a simple cyst at 4.8 x 4.1 x 2.8 cm. It has no internal echoes. It has excellent through transmission. There is another follicle in the ovary 2 x 1.1 x 1.5 cm. That follicle has a daughter follicle within it. Left ovary is 5 x 4 x 4.7 cm. There is a 4.5 x 3 x 4.1 cm cyst with internal echoes throughout, but no color flow to suggest a hemorrhagic cyst on the left. Trace amount of free fluid in the pelvis. Doppler tracing show resistive index 0.51 for the right ovary and 0.53 for the left ovary, no torsion. Color images confirm blood flow as well in the ovarian tissue. Impression: 1. Uterus and endometrial stripe unremarkable. 2. 4.8 x 4.1 x 2.8 cm simple cyst right ovary with 2 x 1.5 cm follicle also seen in that ovary. 3. Left ovary shows a 4.5 x 4.1 x 3 cm hemorrhagic cyst. There is trace amount of free fluid. Signed by Washington Leger MD 06/23/2016 04:38 P
== END 2016-06-22 18:29 | disposition home or self-care (01) ==
LOC: M ED 17:31
DX: N83.201 Unspecified ovarian cyst, right side (principal); Z79.899 Other long term (current) drug therapy; Z88.1 Allergy status to other antibiotic agents; Z88.2 Allergy status to sulfonamides
CPT/HCPCS: 76830; 76856; 80048; 80076; 81001; 81025; 83690; 85025; 93976; 96374; 96375; 99283; J1885; J2405

== ENCOUNTER → 2016-08-14 | Outpatient (REF) | payer OTHER ==
[~2016-08-14] MED LIST changes: +CLOM50TA2 PO; +MACR100C3 PO; +ULTR50TA PO
== END ==
LOC: M SFHCLERA 12:22
PROVIDERS: ATTEND Nurse Practitioner Family
DX: N30.01 Acute cystitis with hematuria (principal)

== ENCOUNTER 2017-03-31 22:20 | Emergency (ER) | payer OTHER ==
[2017-03-31 22:52] LABS: KETONE, URINE AUTO RFX NEGATIVE (NEGATIVE); MUCUS, URINE RFX SMALL (NEGATIVE); NITRITE, URINE AUTO RFX NEGATIVE (NEGATIVE); RBC, URINE AUTO RFX 3 /HPF (0-3); SQUAM EPITHELIAL CELL UR AURFX 3 /HPF (0-6); WBC, URINE AUTO RFX 6 /HPF (0-3)
[2017-03-31 22:54] LABS: LEUKOCYTE ESTERASE UR AUTO RFX TRACE (NEGATIVE)
[2017-03-31 23:28] LABS: BASO # 0.1 10^3/uL (0.0-0.2); BASO % 0.5 % (0.0-1.0); EOS # 0.3 10^3/uL (0.0-0.50); EOS % 2.5 % (0.0-3.0); HEMATOCRIT 38.6 % (36.0-47.0); HEMOGLOBIN 13.2 g/dl (12.0-16.0); IMMATURE GRANULOCYTE % 0.5 % (0-3.0); LYMPH # 2.9 10^3/uL (1.5-6.5); LYMPH % 26.7 % (24.0-44.0); MEAN CORPUSCULAR HEMOGLOBIN 31.5 pg (27.0-33.0); MEAN CORPUSCULAR HGB CONC 34.2 g/dl (32.0-36.5); MEAN CORPUSCULAR VOLUME 92.1 fl (80.0-96.0); MONO # 0.8 10^3/uL (0.0-0.8); MONO % 7.6 % (0.0-5.0); NEUTROPHILS # 6.7 10^3/uL (1.8-7.7); NEUTROPHILS % 62.2 % (36.0-66.0); PLATELET COUNT, AUTOMATED 252 10^3/uL (150-450); RED BLOOD COUNT 4.19 10^6/uL (4.00-5.40); RED CELL DISTRIBUTION WIDTH 11.9 % (11.5-14.5); WHITE BLOOD COUNT 10.7 10^3/uL (4.0-10.0)
[2017-03-31] MEDS: NS 1,000 ML IV (23:30)
[2017-03-31] MEDS: ONDANSETRON 4MG/2ML VIAL (J2405) IV (23:31)
[2017-03-31] MEDS: MORPHINE 4 MG/ML 1ML VIAL (J2270) IV (23:31)
[2017-04-01] LABS: ALBUMIN 3.7 GM/DL (3.2-5.2); ALBUMIN/GLOBULIN RATIO 1.09 (1.00-1.93); ALKALINE PHOSPHATASE 68 U/L (45-117); ALT/SGPT 43 U/L (12-78); AMYLASE 60 U/L (25-115); ANION GAP 9 MEQ/L (8-16); AST/SGOT 22 U/L (7-37); BILIRUBIN,DIRECT < 0.1 MG/DL (0.0-0.2); BILIRUBIN,TOTAL 0.3 MG/DL (0.2-1.0); BLOOD UREA NITROGEN 12 MG/DL (7-18); CALCIUM LEVEL 8.3 MG/DL (8.5-10.1); CARBON DIOXIDE LEVEL 27 MEQ/L (21-32); CHLORIDE LEVEL 107 MEQ/L (98-107); CREATININE FOR GFR 0.66 MG/DL (0.55-1.30); GLOMERULAR FILTRATION RATE > 60.0 (>60); GLUCOSE, FASTING 109 MG/DL (70-100); LIPASE 103 U/L (73-393); POTASSIUM SERUM 3.7 MEQ/L (3.5-5.1); SODIUM LEVEL 143 MEQ/L (136-145); TOTAL PROTEIN 7.1 GM/DL (6.4-8.2)
[2017-04-01] MEDS ORDERED: ISOVUE-370 76% 100ML VIAL (Q9967) As Ordered (00:03)
== END 2017-04-01 01:54 | disposition home or self-care (01) ==
LOC: M ED 04-01 01:54
DX: K21.9 Gastro-esophageal reflux disease without esophagitis (principal); K44.9 Diaphragmatic hernia without obstruction or gangrene; K56.7 Ileus, unspecified; Z79.899 Other long term (current) drug therapy; Z88.2 Allergy status to sulfonamides; Z88.8 Allergy status to other drugs, medicaments and biological substances
CPT/HCPCS: J2270

== ENCOUNTER 2017-04-09 21:55 | Emergency (ER) | payer OTHER ==
[2017-04-10] MEDS: GI COCKTAIL 50ML BTL(HYOSCYAMINE/MAALOX/LIDOCAINE VISCOUS)(1:3:1) PO (00:14)
== END 2017-04-10 01:21 | disposition home or self-care (01) ==
LOC: M ED 21:55
DX: K21.0 Gastro-esophageal reflux disease with esophagitis (principal); F41.9 Anxiety disorder, unspecified; F33.9 Major depressive disorder, recurrent, unspecified; Z79.899 Other long term (current) drug therapy; Z88.2 Allergy status to sulfonamides; Z88.8 Allergy status to other drugs, medicaments and biological substances
CPT/HCPCS: 99282

== ENCOUNTER 2017-07-09 11:48 | Emergency (ER) | payer OTHER ==
[2017-07-09 13:09] LABS: BASO % 0.4 % (0.0-1.0); EOS # 0.1 10^3/uL (0.0-0.50); EOS % 0.6 % (0.0-3.0); HEMATOCRIT 41.7 % (36.0-47.0); IMMATURE GRANULOCYTE % 0.6 % (0-3.0); LYMPH # 1.7 10^3/uL (1.5-6.5); LYMPH % 15.1 % (24.0-44.0); MEAN CORPUSCULAR HEMOGLOBIN 32.4 pg (27.0-33.0); MEAN CORPUSCULAR HGB CONC 33.6 g/dl (32.0-36.5); MEAN CORPUSCULAR VOLUME 96.5 fl (80.0-96.0); MONO # 0.6 10^3/uL (0.0-0.8); MONO % 5.5 % (0.0-5.0); NEUTROPHILS # 8.6 10^3/uL (1.8-7.7); NEUTROPHILS % 77.8 % (36.0-66.0); PLATELET COUNT, AUTOMATED 253 10^3/uL (150-450); RED BLOOD COUNT 4.32 10^6/uL (4.00-5.40); RED CELL DISTRIBUTION WIDTH 11.5 % (11.5-14.5); WHITE BLOOD COUNT 11.1 10^3/uL (4.0-10.0)
[2017-07-09 13:27] LABS: ANION GAP 8 MEQ/L (8-16); BLOOD UREA NITROGEN 13 MG/DL (7-18); CALCIUM LEVEL 8.8 MG/DL (8.5-10.1); CARBON DIOXIDE LEVEL 28 MEQ/L (21-32); CHLORIDE LEVEL 106 MEQ/L (98-107); CREATININE FOR GFR 0.77 MG/DL (0.55-1.30); GLOMERULAR FILTRATION RATE > 60.0 (>60); GLUCOSE, FASTING 89 MG/DL (70-100); SODIUM LEVEL 142 MEQ/L (136-145)
[2017-07-09 13:58] LABS: APPEARANCE, URINE HAZY (CLEAR); BACTERIA, URINE AUTO NEGATIVE (NEGATIVE); BILIRUBIN, URINE AUTO NEGATIVE (NEGATIVE); BLOOD, URINE BLOOD NEGATIVE (NEGATIVE); COLOR, URINE YELLOW (YELLOW); GLUCOSE, URINE (UA) AUTO NEGATIVE (NEGATIVE); KETONE, URINE AUTO NEGATIVE (NEGATIVE); LEUKOCYTE ESTERASE, URINE AUTO TRACE (NEGATIVE); MUCUS, URINE SMALL (NEGATIVE); NITRITE, URINE AUTO NEGATIVE (NEGATIVE); PROTEIN, URINE AUTO NEGATIVE (NEGATIVE); RBC, URINE AUTO 1 /HPF (0-3); SPECIFIC GRAVITY URINE AUTO 1.016 (1.002-1.035); SQUAMOUS EPITHELIAL CELL UR AU 8 /HPF (0-6); UROBILINOGEN, URINE AUTO 0.2 mg/dL (0.0-2.0); WBC, URINE AUTO 2 /HPF (0-3)
[2017-07-09] MEDS: NS 1,000 ML IV ×2 (14:00)
[2017-07-09 14:01] LABS: CONTROL LINE HCG INT CTR LINE PRESENT; HCG, SERUM QUALITATIVE NEGATIVE (NEGATIVE)
[2017-07-09] MEDS: ACETAMINOPHEN TAB 650MG DOSE (2X325MG) PO (15:37)
[2017-07-12 10:58] LABS: BEDSIDE GLUCOSE 98 MG/DL (70-105)
== END 2017-07-09 15:59 | disposition home or self-care (01) ==
LOC: M ED 11:48
DX: R55 Syncope and collapse (principal); R51 Headache; R11.0 Nausea; E78.9 Disorder of lipoprotein metabolism, unspecified; Z79.899 Other long term (current) drug therapy; Z88.2 Allergy status to sulfonamides; Z88.8 Allergy status to other drugs, medicaments and biological substances
CPT/HCPCS: 70450

== ENCOUNTER 2017-07-27 13:22 | Emergency (ER) | payer OTHER ==
[2017-07-27] MEDS: GASTROGRAFIN SOLUTION 30ML PO ×2 (14:00→14:30)
[2017-07-27] MEDS: ONDANSETRON 4MG/2ML VIAL (J2405) IV ×2 (14:00→17:00)
[2017-07-27] MEDS: NS 1,000 ML IV (14:00)
[2017-07-27 14:43] LABS: BASO # 0.1 10^3/uL (0.0-0.2); BASO % 0.4 % (0.0-1.0); EOS # 0.1 10^3/uL (0.0-0.50); EOS % 0.4 % (0.0-3.0); HEMATOCRIT 44.6 % (36.0-47.0); IMMATURE GRANULOCYTE % 0.6 % (0-3.0); LYMPH # 1.3 10^3/uL (1.5-6.5); LYMPH % 9.3 % (24.0-44.0); MEAN CORPUSCULAR HEMOGLOBIN 31.8 pg (27.0-33.0); MEAN CORPUSCULAR HGB CONC 33.6 g/dl (32.0-36.5); MEAN CORPUSCULAR VOLUME 94.7 fl (80.0-96.0); MONO # 0.9 10^3/uL (0.0-0.8); MONO % 6.2 % (0.0-5.0); NEUTROPHILS # 11.9 10^3/uL (1.8-7.7); NEUTROPHILS % 83.1 % (36.0-66.0); PLATELET COUNT, AUTOMATED 293 10^3/uL (150-450); RED BLOOD COUNT 4.71 10^6/uL (4.00-5.40); RED CELL DISTRIBUTION WIDTH 11.6 % (11.5-14.5); WHITE BLOOD COUNT 14.2 10^3/uL (4.0-10.0)
[2017-07-27] MEDS ORDERED: ISOVUE-370 76% 100ML VIAL (Q9967) As Ordered (15:03)
[2017-07-27 15:15] LABS: KETONE, URINE AUTO RFX NEGATIVE (NEGATIVE); MUCUS, URINE RFX SMALL (NEGATIVE); NITRITE, URINE AUTO RFX NEGATIVE (NEGATIVE); RBC, URINE AUTO RFX 0 /HPF (0-3); SPECIFIC GRAVITY UR AUTO RFX 1.015 (1.002-1.035); SQUAM EPITHELIAL CELL UR AURFX 7 /HPF (0-6); WBC, URINE AUTO RFX 1 /HPF (0-3)
[2017-07-27 15:16] LABS: LEUKOCYTE ESTERASE UR AUTO RFX TRACE (NEGATIVE)
[2017-07-27 16:41] LABS: ALBUMIN/GLOBULIN RATIO 1.18 (1.00-1.93); ALKALINE PHOSPHATASE 73 U/L (45-117); ALT/SGPT 25 U/L (12-78); ANION GAP 8 MEQ/L (8-16); AST/SGOT 11 U/L (7-37); BILIRUBIN,DIRECT 0.2 MG/DL (0.0-0.2); BILIRUBIN,TOTAL 0.7 MG/DL (0.2-1.0); BLOOD UREA NITROGEN 16 MG/DL (7-18); CALCIUM LEVEL 8.6 MG/DL (8.5-10.1); CARBON DIOXIDE LEVEL 28 MEQ/L (21-32); CHLORIDE LEVEL 104 MEQ/L (98-107); CREATININE FOR GFR 0.84 MG/DL (0.55-1.30); GLOMERULAR FILTRATION RATE > 60.0 (>60); GLUCOSE, FASTING 85 MG/DL (70-100); LIPASE 87 U/L (73-393); POTASSIUM SERUM 3.8 MEQ/L (3.5-5.1); SODIUM LEVEL 140 MEQ/L (136-145); TOTAL PROTEIN 7.4 GM/DL (6.4-8.2)
[2017-07-27] MEDS: MORPHINE 4 MG/ML 1ML VIAL/SYRINGE (J2270) IV (17:27)
== END 2017-07-27 18:05 | disposition home or self-care (01) ==
LOC: M ED 13:22
DX: N83.291 Other ovarian cyst, right side (principal); G43.909 Migraine, unspecified, not intractable, without status migrainosus; Z79.899 Other long term (current) drug therapy; Z88.1 Allergy status to other antibiotic agents
CPT/HCPCS: J2270